=== PATIENT | female | born 2000 | race American Indian/Alaskan Native ===

== ENCOUNTER 2019-01-07 08:04 | Emergency (ER) | payer MEDICAID ==
[2019-01-07 08:17] VITALS: BP 119/59
[2019-01-07 09:19] LABS: Bacteria,Urine 2+ /HPF (Negative); Bilirubin,Urine NEG (Negative); Blood,Urine NEG (Negative); Color,Urine Amber (Yellow); Mucus,Urine 2+ /HPF
[2019-01-07 09:27] LABS: Protein,Urine >500 mg/dL (Negative)
[2019-01-07 09:28] LABS: HCG Qualitative,Urine Positive (Negative)
--- NOTE | 2019-01-07 09:44 | Emergency Department Report ---
ED Female HPI - General Chief complaint: Urogenital-Female Stated complaint: LOWER STOMACH PAIN Time Seen by Provider: 01/07/19 09:09 Source: patient Mode of arrival: Ambulatory Limitations: No Limitations - History of Present Illness Initial comments: 18-year-old female with no significant past medical history presents complaining of vaginal discharge times several days. This is patient's third and one history of a previous and patient and patient has a 2-year-old. Positive vaginal itching. She had some mild dysuria when urinating today. She denies abdominal pain, vaginal bleeding, fever, or vomiting. She is 8 weeks 1 day based on LMP 11/11/2019. She is planning to get an next week. - Related Data Previous Rx's Medication Instructions Recorded Last Taken Type Miconazole Nitrate [Miconazole 7] 100 mg VG QHS #7 supp.vag 01/07/19 Unknown Rx Nitrofurantoin Monohyd/M-Cryst 100 mg PO BID #14 capsule 01/07/19 Unknown Rx [Macrobid 100 mg Capsule] Allergies Allergy/AdvReac Type Severity Reaction Status Date / Time No Known Allergies Allergy Unverified 01/07/19 08:05 ED Review of Systems ROS: Stated complaint: LOWER STOMACH PAIN Other details as noted in HPI Comment: All other systems reviewed and negative ED Past Medical Hx - Past Medical History Previous Medical History?: No - Surgical History Past Surgical History?: No - Social History Smoking Status: Never Smoker Substance Use Type: None - Medications Home Medications: Home Medications Medication Instructions Recorded Confirmed Last Taken Type Miconazole Nitrate [Miconazole 7] 100 mg VG QHS #7 supp.vag 01/07/19 Unknown Rx Nitrofurantoin Monohyd/M-Cryst 100 mg PO BID #14 capsule 01/07/19 Unknown Rx [Macrobid 100 mg Capsule] ED Physical Exam - General Limitations: No Limitations - Other Other exam information: General: No limitations, patient is alert in no acute distress Head exam: Atraumatic, normocephalic Eyes exam: Normal appearance ENT: Moist mucous membrane Neck exam: Normal inspection, full range of motion, no meningismus nontender Respiratory exam: Clear to auscultation bilateral, no wheezes, rales, crackles Cardiovascular: Normal rate and rhythm, normal heart sounds Abdomen: Soft, nondistended, and nontender, with normal bowel sounds, no rebound, or guarding : white vag d/c, no cmt or adenexal tenderness. + clitoris piercing Extremity: Full range of motion normal inspection no deformity Back: Normal Inspection, full range of motion, no tenderness Neurologic: Alert, oriented x3, cranial nerves intact, no motor or sensory deficit Psychiatric: normal affect, normal mood Skin: Warm, dry, intact ED Course Vital Signs 01/07/19 08:06 Temperature 97.9 F Pulse Rate 88 Respiratory 20 Rate Blood Pressure 119/59 O2 Sat by Pulse 99 Oximetry ED Medical Decision Making - Lab Data Lab Results 01/07/19 Range/Units Unknown Urine Color Miranda (Yellow) Urine Turbidity Cloudy (Clear) Urine pH 5.0 (5.0-7.0) Ur Specific [place] 1.029 (1.003-1.030) Urine Protein >500 (Negative) mg/dL Urine Glucose (UA) Neg (Negative) mg/dL Urine Ketones 20 (Negative) mg/dL Urine Blood Neg (Negative) Urine Nitrite Neg (Negative) Urine Bilirubin Neg (Negative) Urine Urobilinogen 4.0 (<2.0) mg/dL Ur Leukocyte Esterase Mod (Negative) Urine WBC (Auto) 18.0 H (0.0-6.0) /HPF Urine RBC (Auto) 10.0 (0.0-6.0) /HPF U Epithel Cells (Auto) 42.0 H (0-13.0) /HPF Urine Bacteria (Auto) 2+ (Negative) /HPF Urine Mucus 2+ /HPF Urine HCG, Qual Positive A (Negative) wet prep: <20 clue, + yeast, neg trich - Medical Decision Making Patient be treated for yeast vaginitis and UTI although urine results likely a contaminated sample due to Vaginal discharge. Outpatient follow-up will be encouraged. Patient does not have any abdominal pain. - Differential Diagnosis vaginitis, cervicitis, UTI Critical Care Time: No Critical care attestation.: If time is entered above; I have spent that time in minutes in the direct care of this critically ill patient, excluding procedure time. ED Disposition Clinical Impression: , Yeast vaginitis, UTI (urinary tract infection) Disposition: TO HOME OR SELFCARE Is pt being admited?: No Does the pt Need Aspirin: No Condition: Stable Instructions: (ED), Vulvovaginal Candidiasis (ED), Urinary Tract Infection in Women (ED) Additional Instructions: Take the medication as prescribed. Follow up with your doctor or the doctor provided. Return if symptoms worsen as indicated by your discharge instructions. Your gonorrhea and chlamydia tests are pending and take approximately 3-4 days result. You may obtain results in medical records with a photo ID. You may also obtain results through the follow-up doctor office via medical record request.w Prescriptions: Miconazole Nitrate [Miconazole 7] 100 mg VG QHS #7 supp.vag Nitrofurantoin Monohyd/M-Cryst [Macrobid 100 mg Capsule] 100 mg PO BID #14 capsule Referrals: FAUTSO LU [Staff Physician] - 3-5 Days (nurses medical assistants phlebotomists ) Time of Disposition: 10:29
== END 2019-01-07 10:40 | disposition home or self-care (01) ==
LOC: ED 08:04
DX: O23.591 Infection of other part of genital tract in pregnancy, first trimester (principal); O23.41 Unspecified infection of urinary tract in pregnancy, first trimester; Z3A.08 8 weeks gestation of pregnancy
CPT/HCPCS: 81001; 81025; 87210; 87591

== ENCOUNTER 2022-01-04 14:01 | Inpatient (IN) | payer MEDICAID ==
[2022-01-04] MEDS ORDERED: LACTATED RINGERS 1,000 ML ONE (14:33)
--- NOTE | 2022-01-04 14:51 | History and Physical Report ---
History of Present Illness Date of examination: 01/04/22 Date of admission: 01/04/22 Chief complaint: contractions History of present illness: EDC Confirmation: 01/04/2022 Past History : 5 Term Births: 1 Premature Births: 0 Living Children: 1 Para: 1 Mult. Births: 0 Prev : 0 Prev. attempt? 0 Aborta: 3 Elect. Ab: 3 Spont. Ab: 0 Ectopics: 0 # 1 Delivery date: 2014 Weeks Gestation: 6 Delivery type: EAB Comments: D&C # 2 Delivery date: 03/25/2016 Weeks Gestation: 40 labor: no Delivery type: Hours of labor: 8 Anesthesia type: epidural Delivery location: [place] Infant Sex: Female weight: 7-11 Name: Hawa Comments: Denies complications # 3 Delivery date: 11/2018 Weeks Gestation: 8 Delivery type: EAB Comments: D&C # 4 Delivery date: 02/2020 Weeks Gestation: 12 Delivery type: EAB Comments: medical Past Medical History: Reviewed history from 11/11/2020 and no changes required: Abnormal Pap Smear - colposcopy f/u required Past Surgical History: D&C: (2013):EAB D&C: (2018): EAB D&C: (03/27/2020)EAB General Comments - FH: Britney HAMMOND had CA PGF CA Social History: Marital Status: Single Children: 1 Occupation: [employer] Smoking History: Patient has never smoked. 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 Monthly or less How many standard drinks containing alcohol do you have in a typical day? 1 or 2 How often do you have 6 or more drinks on one occasion? Less than monthly Total AUDIT-C Score: 2 Drug Use: yes Drug of Choice: marijuana Past Medical History Abnormal PAP: positive CONNIE Exposure: negative Infertility: negative Uterine Anomaly: negative Uterine Surgery (not C/S): negative Other Gynecologic Problems: negative Family Hx: Britney HAMMOND had [place] PGF CA Social Hx: Marital Status: Single Children: 1 Occupation: [employer] Smoking History: Patient has never smoked. Infection History Hx of STD: syphilis & GC HIV Risk Eval: low risk Hepatitis B Risk Eval: low risk Personal hx. of genital herpes: yes Partner hx. of genital herpes: no Rash, Viral, or Febrile illness since last LMP? no Varicella/Chicken Pox Status: Unknown TB Risk: no Genetic History Congenital Heart Defect: Mom: no Dad: no Elena Disease: Mom: no Dad: no Thalassemia Mom: no Dad: no Neural Tube Defect Mom: no Dad: no Down's Syndrome Mom: no Dad: no Santiago-Sachs Mom: no Dad: no Sickle Cell Disease/Trait Mom: no Dad: no Hemophilia Mom: no Dad: no Muscular Dystrophy Mom: no Dad: no Cystic Fibrosis Mom: no Dad: no [place] Chorea Mom: no Dad: no Mental Retardation Mom: no Dad: no Fragile X Mom: no Dad: no Other Genetic/Chromosomal Disorder Mom: no Dad: no Child w/other defect Mom: no Dad: no Enviromental Exposures Xray Exposure: no Medication, drug, or alcohol use since LMP: no Chemical/Other Exposure: no Exposure to Cat Liter: no Hx of Parvovirus (Fifth Disease): no Occupational Exposure to Children: none Active Medications (reviewed today): None Current Allergies (reviewed today): No known allergies Past History Past Medical History: no pertinent history, other (see HPI) 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 denies: smoking, alcohol abuse, prescription drug abuse - Obstetrical History Expected Date of Delivery: 01/04/22 Actual Gestation: 40 Week(s) 0 Day(s) : 5 Para: 1 Hx # Term Pregnancies: 1 Number of Pregnancies: 0 Spontaneous Abortions: 0 Induced : 3 Number of Living Children: 1 Medications and Allergies Allergies Allergy/AdvReac Type Severity Reaction Status Date / Time No Known Allergies Allergy Verified 01/04/22 14:21 Home Medications Medication Instructions Recorded Confirmed Last Taken Type Miconazole Nitrate [Miconazole 7] 100 mg VG QHS #7 supp.vag 01/07/19 Unknown Rx Nitrofurantoin Monohyd/M-Cryst 100 mg PO BID #14 capsule 01/07/19 Unknown Rx [Macrobid 100 mg Capsule] Active Meds: Active Medications Acetaminophen (Acetaminophen 325 Mg Tab) 650 mg PO Q4H PRN PRN Reason: Pain, Mild (1-3) Butorphanol Tartrate (Butorphanol 2 Mg/1 Ml Inj) 2 mg IV Q2H PRN PRN Reason: Pain , Severe (7-10) Carboprost Tromethamine (Carboprost Tromethamine 250 Mcg/1 Ml Inj) 250 mcg IM ONCE PRN PRN Reason: Uterine Bleeding Ephedrine Sulfate (Ephedrine Sulfate 50 Mg/1 Ml Inj) 10 mg IV Q2M PRN PRN Reason: Hypotension Oxytocin/Sodium Chloride (Pitocin/Ns 30 Unit/500ml) 30 units in 500 mls @ 2 mls/hr IV TITR NALINI; Protocol Lactated Ringer's (Lactated Ringers) 1,000 mls @ 125 mls/hr IV DIRECT NALINI Oxytocin/Sodium Chloride (Pitocin/Ns 30 Unit/500ml) 30 units in 500 mls @ 40 mls/hr IV TITR NALINI; Protocol Lidocaine (Lidocaine (2%) 20 Mg/1 Ml Vial 20 Ml Mdv) 20 ml INFILTRATI ONCE ONE Stop: 01/04/22 14:42 Loperamide HCl (Loperamide 2 Mg Cap) 2 mg PO ONCE PRN PRN Reason: give with Hemabate Methylergonovine Maleate (Methylergonovine Maleate 0.2 Mg/Ml Vial) 0.2 mg IM ONCE PRN PRN Reason: Uterine Bleeding Mineral Oil (Mineral Oil 30 Ml Oral Liqd) 30 ml PO QHS PRN PRN Reason: Constipation Misoprostol (Misoprostol 200 Mcg Tab) 800 mcg ID ONCE PRN PRN Reason: Uterine Bleeding Nalbuphine HCl (Nalbuphine 10 Mg/1 Ml Inj) 10 mg IV Q2H PRN PRN Reason: Pain, Moderate (4-6) Naloxone HCl (Naloxone 0.4 Mg/1 Ml Inj) 0.1 mg IV Q2MIN PRN PRN Reason: Res Rate </= 8 or 02 SAT < 92% Ondansetron HCl (Ondansetron 4 Mg/2 Ml Inj) 4 mg IV Q8H PRN PRN Reason: Nausea And Vomiting Oxytocin (Oxytocin 10 Unit/1 Ml Inj) 10 unit IM ONCE PRN PRN Reason: Uterine Bleeding Promethazine HCl (Promethazine 25 Mg Rect Supp) 25 mg ID Q6H PRN PRN Reason: N/V if unable to take po Terbutaline Sulfate (Terbutaline 1 Mg/1 Ml Inj) 0.25 mg SUB-Q ONCE PRN PRN Reason: Hyperstimulation/Hypertonicity Review of Systems All systems: negative Genitourinary: contractions, no vaginal bleeding, no leakage of fluid, no genital sores - Vital Signs Vital signs: Vital Signs Temp Pulse Resp BP Pulse Ox 97.8 F 90 20 155/104 99 01/04/22 14:25 01/04/22 14:25 01/04/22 14:25 01/04/22 14:25 01/04/22 14:25 Temp Pulse Resp BP Pulse Ox 97.8 F 86 20 155/104 99 01/04/22 14:25 01/04/22 14:41 01/04/22 14:25 01/04/22 14:29 01/04/22 14:41 - Physical Exam Breasts: Positive: deferred Cardiovascular: Regular rate Lungs: Positive: Normal air movement Abdomen: Positive: normal appearance, soft. Negative: distention, tenderness, guarding Genitourinary (Female): Positive: normal external genitalia, normal perenium Vulva: both: normal Uterus: Positive: normal size, normal contour, other (gravid at term) Anus/Rectum: Positive: normal perianal skin, heme negative Extremities: Positive: normal - Obstetrical FHR: category 1 Uterine Contraction Monitor Mode: External Uterine Contraction Pattern: Regular Uterine Tone Measurement Phase: Resting Results Result Diagrams: 01/04/22 14:50 All other labs normal. Tests: (1) RPR, Rfx Qn RPR/Confirm TP ([id number]) RPR Non Reactive Non Reactive *1 Tests: (2) HIV Ag/Ab with Reflex ([id number]) HIV Screen 4th Generation wRfx Non Reactive Non Reactive *2 Tests: (1) Ct, Ng, Trich vag by JENNIFER ([id number]) Order Note: Clinical Information: SRC:UR SRC:VR Chlamydia by JENNIFER Negative Negative *1 Gonococcus by JENNIFER Negative Negative *2 Trich vag by JENNIFER Negative Negative *3 Tests: (2) Strep Gp B JENNIFER ([id number]) ! Strep Gp B JENNIFER Negative Negative *4 Tests: (1) Profile I ([id number]) Order Note: Clinical Information: SRC:UR HBsAg Screen Negative Negative *1 RPR Non Reactive Non Reactive *2 Rubella Antibodies, IgG [L] <0.90 index Immune >0.99 *3 Non-immune <0.90 Equivocal 0.90 - 0.99 Immune >0.99 ABO Grouping O *4 Rh Factor Positive *5 Please note: Prior records for this patient's ABO / Rh type are not available for additional verification. Antibody Screen Negative Negative *6 WBC 6.4 x10E3/uL 3.4-10.8 *7 RBC 3.96 x10E6/uL 3.77-5.28 *8 Hemoglobin 11.5 g/dL 11.1-15.9 *9 Hematocrit 36.3 % 34.0-46.6 *10 MCV 92 fL 79-97 *11 MCH 29.0 pg 26.6-33.0 *12 MCHC 31.7 g/dL 31.5-35.7 *13 RDW 12.3 % 11.7-15.4 *14 Platelets 265 x10E3/uL 150-450 *15 Neutrophils 67 % Not Estab. *16 Lymphs 25 % Not Estab. *17 Monocytes 7 % Not Estab. *18 Eos 1 % Not Estab. *19 Basos 0 % Not Estab. *20 ! Immature Cells <No Reported Value> *21 Neutrophils (Absolute) 4.3 x10E3/uL 1.4-7.0 *22 Lymphs (Absolute) 1.6 x10E3/uL 0.7-3.1 *23 Monocytes(Absolute) 0.4 x10E3/uL 0.1-0.9 *24 Eos (Absolute) 0.0 x10E3/uL 0.0-0.4 *25 Baso (Absolute) 0.0 x10E3/uL 0.0-0.2 *26 ! Immature Granulocytes 0 % Not Estab. *27 ! Immature Grans (Abs) 0.0 x10E3/uL 0.0-0.1 *28 ! NRBC <No Reported Value> *29 Hematology Comments: <No Reported Value> *30 Tests: (2) AFP Tetra ([id number]) ! Results Report *31 ! Test Results: *Screen Negative* *32 ! Gest. Age on Collection Date 18.4 WEEKS *33 ! Gestat. Age Based On Ultrasound *34 18.4 on 08/06/2021 ! [age]JO [age] *35 ! Race Black *36 ! Weight 145 lbs *37 ! Insulin Dep Diabetes No *38 ! Multiple Gestation No *39 ! AFP Value 59.4 ng/mL *40 ! AFP MoM 1.12 *41 ! hCG Value 61686 mIU/mL *42 ! hCG MoM 0.47 *43 ! uE3 Value 1.75 ng/mL *44 ! uE3 MoM 1.09 *45 ! EMMA Value 128.06 pg/mL *46 ! EMMA MoM 0.79 *47 ! OSBR [place] 1 [place] [address] *48 ! DSR (Second Trimester) 1 [place] [address] *49 ! DSR (By Age) 1 IN 1100 *50 ! T18 Risk Not increased *51 ! T18 (By Age) 1:4285 *52 ! Interpretation NL42 *53 Interpretation: Screen Negative This result is screen negative for OSB, Down Syndrome and Trisomy 18. The AFP MoM and patient specific risks calculated are based on the gestational age and the clinical information provided. This test can identify up to 80% of open neural tube defects. Closed neural tube defects and some open defects may not be detected by this test. The combination of maternal age, AFP, hCG, uE3, and EMMA identifies 75-80% of Down Syndrome. The combination of maternal age, AFP, hCG and uE3 identifies 60% of Trisomy 18 pregnancies. The [place] [employer] recommends amniocentesis be offered to women age 35 and older. Recalculations are not recommended when gestational dating by LMP and ultrasound are within 10 days. ! Comments: SPRCS *54 Daylin Santana, Ph.D., [facility] Director References: Available Upon Request. Multiples Of Median Cutoffs Abbreviation Definitions For AFP Elevations IDD- Insulin Dep Diabetes Sanches 2.5 Black 2.8 OSBR- Open Spina Bifida IDD 2.0 Twins 4.5 Risk DSR Cutoff 1:270 DSR- Down Syndrome Risk T18 Cutoff 1:100 T18- Trisomy 18 Down Syndrome and Trisomy 18 screening are considered Investigational For further inquiries contact [employer] at [phone]. Tests: (3) HB Solu + Rflx Fra ([id number]) Hemoglobin (Hgb) Solubility Negative Negative *55 Tests: (4) HIV Ag/Ab with Reflex ([id number]) HIV Screen 4th Generation wRfx Non Reactive Non Reactive *56 Tests: (5) HCV Antibody reflex to JENNIFER ([id number]) HCV Ab <0.1 s/co ratio 0.0-0.9 *57 Tests: (6) Interpretation: ([id number]) ! Interpretation: SPRCS *58 Negative Not infected with HCV, unless recent infection is suspected or other evidence exists to indicate HCV infection. Tests: (7) Urine Culture, Routine ([id number]) Urine Culture, Routine Final report *59 Tests: (8) Result ([id number]) ! Result 1 "Result Below..." *60 RESULT: Lactobacillus species 10,000-25,000 colony forming units per mL Susceptibility not normally performed on this organism. 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 Pt verbalizes desires for epidural. All questions and concerns addressed. Anticipate . - Patient Problems (1) 40 weeks gestation of Current Visit: Yes Status: Acute (2) Echogenic intracardiac focus of fetus on ultrasound Current Visit: Yes Status: Acute (3) HSV-2 infection complicating Current Visit: Yes Status: Acute (4) Rubella non-immune status, antepartum Current Visit: Yes Status: Acute
[2022-01-04] MEDS ORDERED: LACTATED RINGERS 1,000 ML IV SCH (15:00)
[2022-01-04] MEDS ORDERED: OXYTOCIN DRIP 30 UNITS/500 ML BAG IV SCH ×2 (15:00)
[2022-01-04 15:05] LABS: Hemoglobin 12.1 gm/dl (10.1-14.3); Mean Corpuscular HGB Conc 33 % (30-34); Mean Corpuscular Volume 89 fl (79-97); Platelet Count 208 K/mm3 (140-440); Red Blood Count 4.14 M/mm3 (3.65-5.03); Red Cell Distribution Width 14.2 % (13.2-15.2)
[2022-01-04] MEDS ORDERED: ePHEDrine SULFATE 50 MG/1 ML INJ IV PRN ×2 (15:21→15:30)
[2022-01-04] MEDS ORDERED: NALOXONE 2 MG/2 ML INJ IV PRN (15:21)
--- NOTE | 2022-01-04 15:21 | Anesthesia Consultation ---
Anesthesia Consult and Med Hx Date of service: 01/04/22 - Airway Anesthetic Teeth Evaluation: Good ROM Head & Neck: Adequate Mental/Hyoid Distance: Adequate Mallampati Class: Class II Intubation Access Assessment: Probably Good - Pulmonary Exam CTA: Yes - Cardiac Exam Cardiac Exam: RRR - Pre-Operative Health Status ASA Pre-Surgery Classification: ASA2 Proposed Anesthetic Plan: Epidural - Pulmonary Hx Asthma: No - Cardiovascular System Hx Hypertension: No - Central Nervous System Hx Seizures: No Hx Psychiatric Problems: No - Endocrine Hx Renal Disease: No Hx Hypothyroidism: No - Hematic Hx Anemia: No Hx Sickle Cell Disease: No - Other Systems Hx Alcohol Use: No
[2022-01-04] MEDS ORDERED: ACETAMINOPHEN 325 MG TAB PO PRN ×2 (15:30→21:40)
[2022-01-04] MEDS ORDERED: OXYTOCIN 10 UNIT/1 ML INJ IM PRN (15:30)
[2022-01-04] MEDS ORDERED: BUTORPHANOL 2 MG/1 ML INJ IV PRN (15:30)
[2022-01-04] MEDS ORDERED: miSOPROStol 200 MCG TAB PR PRN (15:30)
[2022-01-04] MEDS ORDERED: METHYLERGONOVINE MALEATE 0.2 MG/ML VIAL IM PRN (15:30)
[2022-01-04] MEDS ORDERED: CARBOPROST TROMETHAMINE 250 MCG/1 ML INJ IM PRN (15:30)
[2022-01-04] MEDS ORDERED: TERBUTALINE 1 MG/1 ML INJ SUB-Q PRN (15:30)
[2022-01-04] MEDS ORDERED: LIDOCAINE (2%) 20 MG/1 ML VIAL 20 ML MDV INFILTRATI ONE (15:30)
[2022-01-04] MEDS ORDERED: LOPERAMIDE 2 MG CAP PO PRN (15:30)
[2022-01-04] MEDS ORDERED: NALOXONE 0.4 MG/1 ML INJ IV PRN (15:30)
[2022-01-04] MEDS ORDERED: MINERAL OIL 30 ML ORAL LIQD PO PRN (15:30)
[2022-01-04] MEDS ORDERED: NalbUPHINE 10 MG/1 ML INJ IV PRN (15:30)
[2022-01-04] MEDS ORDERED: ONDANSETRON 4 MG/2 ML INJ IV PRN ×2 (15:30→21:40)
[2022-01-04] MEDS ORDERED: PROMETHAZINE 25 MG RECT SUPP PR PRN ×2 (15:30→21:40)
--- NOTE | 2022-01-04 15:45 | Progress Note ---
Labor Epidural - Labor Epidural Start Time: 15:33 Stop Time: 15:37 Performed by:: SYD ARCINIEGA Procedure: Patient is requesting epidural for labor pain. H&P, and labs reviewed. Procedure explained, questions answered, consent obtained. Patient in sitting position with blood pressure cuff and pulse ox on and working. Timeout performed immediately before start of procedure. Sterile Duraprep prep/drape. 3 mL 1% lidocaine skin wheal at L[3]-L[4]. 17-gauge tuohy epidural needle advanced to [id number] with saline at 5 cm. 25-gauge spinal needle advanced until clear, free-flowing CSF. Intrathecal dexmedetomidine 5 mcg administered and needle removed. Epidural catheter advanced to 10 cm, negative aspiration for blood and csf, negative test dose 3 ml 1.5% lidocaine with epinephrine. Sterile sponge and tegaderm applied, followed by tape reinforcement. Patient tolerated procedure well.
[2022-01-04] MEDS ORDERED: fentaNYL-BUPIV 2 MCG/ML-0.125% 200 MCG/100 ML BAG EPIDURAL SCH (16:00)
--- NOTE | 2022-01-04 16:14 | Event Note ---
Date: 01/04/22 Pt comfortable s/p epidural. Pt reports not feeling prodromal ssx or having HSV outbreak currently or in the last 2 weeks. Pt denies feeling like she's going to have an outbreak. No lesions seen on exam. SROM thick meconium, SVE 8/100/-1, pt tolerated exam well; FHT's cat1. Syphilis IgG antibody reactive. Dr. Miles made aware. Per MD, pt ok to deliver vaginally at this time. Per Yolanda in hospital lab, RPR reflex titer to be completed now. Yolanda denies this reactive test being a confirmatory test.
[2022-01-04] MEDS ORDERED: PENICILLIN G BENZATHINE 1.2 MILLION UNIT/2 ML INJ IM ONE (17:00)
--- NOTE | 2022-01-04 17:01 | Procedure Note ---
OB Delivery Note - Delivery Date of Delivery: 01/04/22 Foundry Engineer: DANIELA PÉREZ Estimated blood loss: 300cc - Vaginal Delivery presentation: vertex Delivery position: OA Intrapartum events: meconium Delivery induction: none Delivery monitor: external FHT, external uterine Route of delivery: Delivery placenta: spontaneous Delivery cord: 3 umbilical vessels Delivery laceration: none Anesthesia: epidural Delivery comments: ALLA present for delivery counts correct x2 - A at 1 minute: 7 at 5 minutes: 9 Infant Gender: Male (8lbs)
[2022-01-04] MEDS ORDERED: diphenhydrAMINE 25 MG CAP PO PRN (21:40)
[2022-01-04] MEDS ORDERED: MAGNESIUM HYDROXIDE (MOM) ORAL LIQD UDC PO PRN (21:40)
[2022-01-04] MEDS ORDERED: WITCH HAZEL/ GLYCERIN PAD TP PRN (21:40)
[2022-01-04] MEDS ORDERED: BENZOCAINE/MENTHOL 20/0.5% TOP SPRAY 56 GM TP PRN (21:40)
[2022-01-04] MEDS ORDERED: HYDROCORTISONE 25 MG RECTAL SUPP PR PRN (21:40)
[2022-01-04] MEDS ORDERED: LANOLIN/ZINC/DIMETHICONE (LANSINOH) 7 GM TP PRN (21:40)
[2022-01-04] MEDS ORDERED: HYDROcodone/ACETAMINOPHEN 5-325 MG TAB PO PRN (21:40)
[2022-01-04] MEDS ORDERED: PROMETHAZINE 25 MG TAB PO PRN (21:40)
[2022-01-05] MEDS: IBUPROFEN 600 MG TAB PO SCH ×2 (00:04→08:19)
[2022-01-05] MEDS: FERROUS SULFATE 325 MG TAB PO SCH ×2 (00:04→08:20)
[2022-01-05] MEDS: DOCUSATE SODIUM 100 MG CAP PO SCH ×2 (00:04→08:20)
[2022-01-05] MEDS ORDERED: TETANUS,DIPH,PERTUSS(ACELL) VACCINE 0.5 ML SYRINGE IM ONE (06:00)
[2022-01-05] MEDS ORDERED: MEASLES, MUMPS & RUBELLA 12,500 UNIT/0.5 ML VACCINE SUB-Q ONE (06:00)
[2022-01-05 06:32] LABS: Hematocrit 33.6 % (30.3-42.9); Hemoglobin 10.9 gm/dl (10.1-14.3)
--- NOTE | 2022-01-05 09:00 | Discharge Summary ---
Providers - Providers Date of Admission: 01/04/22 15:08 Date of discharge: 01/05/22 Attending physician: GM BECK 01/04/22 21:40 Consult to Case Management [CONS] Routine Services Needed at Discharge: Other Croze Cutter Primary care physician: GM BECK Hospitalization Reason for admission: Labor Condition: Good Pertinent studies: post delivery H&H 10.9/33.6 Procedures: Hospital course: uncomplicated and course Disposition: 01 HOME / SELF CARE / HOMELESS Final Discharge Diagnosis (Prints w/discharge instructions): Time spent for discharge: 25 - Discharge Diagnoses (1) (normal spontaneous vaginal delivery) Status: Acute Core Measure Documentation - Palliative Care Palliative Care/ Comfort Measures: Not Applicable - Core Measures Any of the following diagnoses?: none Exam - Constitutional Vitals: Temp Pulse Resp BP Pulse Ox 98.2 F 62 20 112/79 97 01/04/22 23:26 01/04/22 23:26 01/05/22 00:04 01/04/22 23:26 01/05/22 08:45 General appearance: Present: no acute distress, well-nourished - EENT Eyes: Present: PERRL ENT: hearing intact, clear oral mucosa - Neck Neck: Present: supple, normal ROM - Respiratory Respiratory effort: normal Respiratory: bilateral: CTA - Cardiovascular Rhythm: regular Heart Sounds: Absent: rub, click - Extremities Extremities: No edema Peripheral Pulses: within normal limits - Abdominal General gastrointestinal: Present: soft, non-tender, non-distended, normal bowel sounds Female genitourinary: Present: normal - Integumentary Integumentary: Present: clear, warm, dry - Musculoskeletal Musculoskeletal: gait normal, strength equal bilaterally - Psychiatric Psychiatric: appropriate mood/affect, intact judgment & insight - Neurologic Neurologic: CNII-XII intact, moves all extremities - Additional findings Additional findings: lochia scant, fundus firm, bottle feeding (baby in NICU) Plan Activity: no restrictions Diet: regular Follow up with: GM BECK MD [Primary Care Provider] - 7 Days (Congratulations! Please call [phone] to schedule your son's circumcision when he is released from the hospital and your appointment in 6 weeks. Call for any questions or concerns.) Prescriptions: Lidocain2.5%/Prilocai2.5% [Emla] 5 gm TP ONCE PRN #1 tube PRN Reason: Pain Ibuprofen [Motrin 800 MG tab] 800 mg PO Q8HR PRN #30 tablet PRN Reason: Pain
[2022-01-05] MEDS ORDERED: PRENATAL VIT27-FE FUMARATE-FOLIC ACID VIT TAB PO SCH (10:00)
--- NOTE | 2022-01-05 11:07 | Post Anesthesia Evaluation ---
- Post Anesthesia Evaluation Patient Participated: Yes Airway Patent: Yes Stable Respiratory Function: Yes Nausea/Vomiting: No Temp > 96.8F: Yes Pain Manageable: Yes Adequeate Hydration: Yes Anesthesia Complications: No Block Receding Appropriately: Yes
[2022-01-05 12:55] VITALS: BP 113/59
== END 2022-01-05 13:00 | disposition home or self-care (01) | DRG 774 ==
LOC: TRG 14:01 → APU 14:02 → TRG 14:41 → LD 14:57 → OB 20:16
PROVIDERS: ADMIT Obstetrics & Gynecology; ATTEND Obstetrics & Gynecology
PROC: 10E0XZZ Delivery of Products of Conception, External Approach (ICD-10-PCS; principal; 2022-01-04)
PROC: 3E0R3BZ Introduction of Anesthetic Agent into Spinal Canal, Percutaneous Approach (ICD-10-PCS; 2022-01-04)
PROC: 00HU33Z Insertion of Infusion Device into Spinal Canal, Percutaneous Approach (ICD-10-PCS; 2022-01-04)
PROC: 3E0234Z Introduction of Serum, Toxoid and Vaccine into Muscle, Percutaneous Approach (ICD-10-PCS; 2022-01-05)
PROC: 3E0134Z Introduction of Serum, Toxoid and Vaccine into Subcutaneous Tissue, Percutaneous Approach (ICD-10-PCS; 2022-01-05)
DX: O77.0 Labor and delivery complicated by meconium in amniotic fluid (principal); O98.52 Other viral diseases complicating childbirth; B00.9 Herpesviral infection, unspecified; Z20.822 Contact with and (suspected) exposure to COVID-19; Z3A.40 40 weeks gestation of pregnancy; Z37.0 Single live birth; Z23 Encounter for immunization
CPT/HCPCS: 36415; 85014; 85018; 85027; 86592; 86593; 86780; 86850; 86900; 86901; 88307; G0378; J0561; U0003